=== PATIENT | male | born 1990 | race African-American/Black ===

== ENCOUNTER 2019-10-13 09:48 | Inpatient (IN) | payer MEDICAID, OTHER ==
[~2019-10-13] VITALS: Ht 180.3 cm; Wt 77.1 kg
[2019-10-13] MEDS ORDERED: FAMOTIDINE 20MG/2ML VIAL IV STA (10:04)
[2019-10-13] MEDS ORDERED: ONDANSETRON HCL 4MG/2ML INJ IV STA (10:04)
[2019-10-13] MEDS ORDERED: SODIUM CHLORIDE 0.9% 1,000 ML IV ONE (10:04)
[2019-10-13] MEDS ORDERED: MORPHINE SULFATE 4 MG/ML CPJ (NOT FOR IM USE) IV STA (10:04)
[2019-10-13 10:45] LABS: BASOPHILS % 0.5 % (0.0-2.0); EOSINOPHILS % 0.1 % (0.0-5.0); HEMATOCRIT. 42.8 % (42.0-52.0); HEMOGLOBIN. 13.9 g/dL (14.0-18.0); LYMPHOCYTES % 23.6 % (20.0-50.0); MEAN CORPUSCULAR HEMOGLOBIN 24.1 pg (28.0-32.0); MEAN CORPUSCULAR VOLUME 74.2 fL (80.0-94.0); MEAN PLATELET VOLUME 9.9 fl (7.4-10.4); MONOCYTES % 5.9 % (2.0-8.0); NEUTROPHILS % 69.9 % (40.0-76.0); PLATELET 205 x1000/uL (130-400); RED BLOOD CELL COUNT 5.77 mill/uL (4.7-6.1); RED CELL DISTRIBUTION WIDTH 15.2 % (11.6-14.6)
[2019-10-13 10:50] LABS: CHLORIDE 105 mEq/L (98-107)
[2019-10-13 10:53] LABS: INR 1.1; PROTHROMBIN TIME 11.4 sec (9.6-11.0)
[2019-10-13 10:55] LABS: ETHANOL BLOOD < 10 mg/dL
[2019-10-13] MEDS ORDERED: IOHEXOL-300 100 ML BOTTLE ONE ×2 (11:49→11:50)
[2019-10-13] MEDS ORDERED: PIPERACILLIN/TAZ 3.375G PREMIX 50 ML IV ONE ×2 (12:00)
[2019-10-13] MEDS ORDERED: MORPHINE SULFATE 4 MG/ML CPJ (NOT FOR IM USE) IV ONE (12:00)
[2019-10-13] MEDS ORDERED: ONDANSETRON HCL 4MG/2ML INJ IV ONE (12:15)
[2019-10-13 17:00] VITALS: BP 134/71
[2019-10-13] MEDS: ONDANSETRON HCL 4MG/2ML INJ IV PRN (17:46)
[2019-10-13] MEDS: MORPHINE SULFATE 4 MG/ML CPJ (NOT FOR IM USE) IV PRN (17:47)
[2019-10-13 19:12] LABS: CLARITY URINE CLEAR (CLEAR); COLOR URINE YELLOW (YELLOW); KETONES URINE TRACE (NEGATIVE); LEUKOCYTE ESTERASE URINE NEGATIVE (NEGATIVE); NITRITE URINE NEGATIVE (NEGATIVE); OCCULT BLOOD URINE NEGATIVE (NEGATIVE); PH URINE 5.5 (4.5-8.0); PROTEIN URINE NEGATIVE (NEGATIVE); SPECIFIC GRAVITY URINE 1.045 (1.005-1.030); UROBILINOGEN URINE 0.2 E.U./dL (0.2-1.0)
[2019-10-13 19:26] LABS: *BARBITURATES SCREEN URINE NEGATIVE (NEGATIVE); *BENZODIAZEPINES SCREEN URINE NEGATIVE (NEGATIVE); *COCAINE SCREEN URINE NEGATIVE (NEGATIVE)
[2019-10-13 19:27] LABS: *AMPHETAMINES SCREEN URINE NEGATIVE (NEGATIVE); CANNABINOID URINE SCREEN NEGATIVE (NEGATIVE); METHADONE URINE SCREEN NEGATIVE (NEGATIVE); OPIATES URINE SCREEN PRESUMTIVE POSITIVE (NEGATIVE); PHENCYCLIDINE URINE SCREEN NEGATIVE (NEGATIVE)
[2019-10-13 20:00] VITALS: BP 131/73
[2019-10-13] MEDS: FAMOTIDINE 20MG/2ML VIAL IV SCH (21:57)
[2019-10-13] MEDS: DEXT 5%/0.45% NACL KCL 10MEQ/L 1,000 ML IV SCH (21:59)
[2019-10-14] VITALS: BP 140/86
[2019-10-14] MEDS: MORPHINE SULFATE 4 MG/ML CPJ (NOT FOR IM USE) IV PRN ×4 (00:20→20:56)
[2019-10-14] MEDS: ONDANSETRON HCL 4MG/2ML INJ IV PRN ×4 (00:21→20:56)
[2019-10-14] MEDS: DEXT 5%/0.45% NACL KCL 10MEQ/L 1,000 ML IV SCH ×2 (02:51→18:32)
[2019-10-14 04:00] VITALS: BP 121/72
[2019-10-14 06:31] LABS: BASOPHILS % 0.3 % (0.0-2.0); HEMATOCRIT. 41.2 % (42.0-52.0); HEMOGLOBIN. 13.2 g/dL (14.0-18.0); LYMPHOCYTES % 7.9 % (20.0-50.0); MEAN CORPUSCULAR HEMOGLOBIN 23.9 pg (28.0-32.0); MEAN CORPUSCULAR VOLUME 74.7 fL (80.0-94.0); MEAN PLATELET VOLUME 10.2 fl (7.4-10.4); NEUTROPHILS % 83.8 % (40.0-76.0); PLATELET 207 x1000/uL (130-400); RED BLOOD CELL COUNT 5.52 mill/uL (4.7-6.1); RED CELL DISTRIBUTION WIDTH 15.5 % (11.6-14.6)
[2019-10-14 06:31] LABS: CHLORIDE 103 mEq/L (98-107)
[2019-10-14 06:40] LABS: PHOSPHORUS 3.6 mg/dL (2.5-4.9)
[2019-10-14 08:00] VITALS: BP 138/83
[2019-10-14] MEDS: FAMOTIDINE 20MG/2ML VIAL IV SCH ×2 (09:27→20:57)
[2019-10-14] MEDS ORDERED: NA PHOS,M-B/NA PHOS,DI-BA ENEMA 118ML PR NR (11:30)
[2019-10-14 12:00] VITALS: BP 101/65
[2019-10-14] MEDS ORDERED: POTASSIUM CHLORIDE INJ 40 MEQ in DEXT 5% WATER 500 ML IV NR (12:00)
[2019-10-14] MEDS ORDERED: MAGNESIUM 2 G PREMIX 50 ML IV NR (12:00)
[2019-10-14 16:00] VITALS: BP 120/77
[2019-10-14 20:00] VITALS: BP 116/74
[2019-10-15] VITALS: BP 132/78
[2019-10-15] MEDS: DEXT 5%/0.45% NACL KCL 10MEQ/L 1,000 ML IV SCH ×3 (02:55→18:48)
[2019-10-15] MEDS: ONDANSETRON HCL 4MG/2ML INJ IV PRN ×2 (03:06→16:40)
[2019-10-15] MEDS: MORPHINE SULFATE 4 MG/ML CPJ (NOT FOR IM USE) IV PRN ×4 (03:06→23:27)
[2019-10-15 04:00] VITALS: BP 124/60
[2019-10-15 06:52] LABS: HEMATOCRIT. 42.3 % (42.0-52.0); HEMOGLOBIN. 13.7 g/dL (14.0-18.0); MEAN CORPUSCULAR HEMOGLOBIN 24.1 pg (28.0-32.0); MEAN CORPUSCULAR VOLUME 74.3 fL (80.0-94.0); MEAN PLATELET VOLUME 9.8 fl (7.4-10.4); PLATELET 190 x1000/uL (130-400); RED CELL DISTRIBUTION WIDTH 14.9 % (11.6-14.6)
[2019-10-15 07:50] LABS: CHLORIDE 103 mEq/L (98-107)
[2019-10-15 07:59] LABS: PHOSPHORUS 2.2 mg/dL (2.5-4.9)
[2019-10-15 08:00] VITALS: BP 147/92
[2019-10-15] MEDS: FAMOTIDINE 20MG/2ML VIAL IV SCH ×2 (09:38→21:01)
[2019-10-15 12:18] LABS: PLATELET ESTIMATE NORMAL
[2019-10-15] MEDS ORDERED: POTASSIUM PHOS,M-BASIC-D-BASIC 15 MMOL in DEXT 5% WATER 245 ML IV NR (13:00)
[2019-10-15 16:00] VITALS: BP 126/78
[2019-10-15 20:00] VITALS: BP 123/82
[2019-10-16] VITALS: BP 119/77
[2019-10-16] MEDS: DEXT 5%/0.45% NACL KCL 10MEQ/L 1,000 ML IV SCH ×3 (03:21→17:48)
[2019-10-16 04:00] VITALS: BP 119/76
[2019-10-16] MEDS: MORPHINE SULFATE 4 MG/ML CPJ (NOT FOR IM USE) IV PRN ×3 (05:35→21:56)
[2019-10-16 08:00] VITALS: BP 149/96
[2019-10-16] MEDS: FAMOTIDINE 20MG/2ML VIAL IV SCH ×2 (09:04→21:04)
[2019-10-16 12:00] VITALS: BP 131/80
[2019-10-16 16:00] VITALS: BP 132/81
[2019-10-16] MEDS: ONDANSETRON HCL 4MG/2ML INJ IV PRN (17:48)
[2019-10-16 20:00] VITALS: BP 119/85
[2019-10-17] VITALS: BP 131/79
[2019-10-17] MEDS: DEXT 5%/0.45% NACL KCL 10MEQ/L 1,000 ML IV SCH ×3 (02:31→21:15)
[2019-10-17 03:58] VITALS: BP 109/78
[2019-10-17] MEDS: MORPHINE SULFATE 4 MG/ML CPJ (NOT FOR IM USE) IV PRN ×4 (04:01→23:13)
[2019-10-17] MEDS: ONDANSETRON HCL 4MG/2ML INJ IV PRN ×4 (04:02→23:14)
[2019-10-17 07:34] LABS: CHLORIDE 101 mEq/L (98-107)
[2019-10-17 07:50] LABS: HEMATOCRIT. 41.7 % (42.0-52.0); HEMOGLOBIN. 13.7 g/dL (14.0-18.0); MEAN CORPUSCULAR HEMOGLOBIN 24.1 pg (28.0-32.0); MEAN CORPUSCULAR VOLUME 73.6 fL (80.0-94.0); PLATELET 231 x1000/uL (130-400); RED BLOOD CELL COUNT 5.67 mill/uL (4.7-6.1); RED CELL DISTRIBUTION WIDTH 14.5 % (11.6-14.6)
[2019-10-17 08:00] VITALS: BP 130/82
[2019-10-17] MEDS: FAMOTIDINE 20MG/2ML VIAL IV SCH ×2 (09:29→21:15)
[2019-10-17 12:00] VITALS: BP 141/95
[2019-10-17 13:17] LABS: PLATELET ESTIMATE NORMAL
[2019-10-17 16:00] VITALS: BP 132/95
[2019-10-17 20:00] VITALS: BP 132/81
[2019-10-18] VITALS: BP 129/81
[2019-10-18 04:00] VITALS: BP 129/81
[2019-10-18] MEDS: ONDANSETRON HCL 4MG/2ML INJ IV PRN ×2 (06:08→11:23)
[2019-10-18] MEDS: MORPHINE SULFATE 4 MG/ML CPJ (NOT FOR IM USE) IV PRN ×4 (06:09→21:15)
[2019-10-18 07:06] LABS: CHLORIDE 99 mEq/L (98-107)
[2019-10-18 07:16] LABS: LDL CHOLESTEROL 81 mg/dL (5-100)
[2019-10-18 07:18] LABS: HDL CHOLESTEROL 13 mg/dL (40-59)
[2019-10-18 08:00] VITALS: BP 141/88
[2019-10-18] MEDS ORDERED: NORMAL SALINE 0.9% 10 ML SYR ONE (08:37)
[2019-10-18] MEDS ORDERED: BACITRACIN 50,000 UNITS/VIAL ONE (08:38)
[2019-10-18] MEDS ORDERED: BUPIVACAINE HCL 0.5% (5MG/ML) 50ML ONE (08:38)
[2019-10-18] MEDS ORDERED: PROPOFOL 200MG/20ML VIAL IV ONE (08:58)
[2019-10-18] MEDS ORDERED: LIDOCAINE HCL/PF 1% 10 MG/ML 5ML VIAL ONE (08:58)
[2019-10-18] MEDS ORDERED: MIDAZOLAM HCL 2 MG/2 ML VIAL ONE (08:58)
[2019-10-18] MEDS ORDERED: FENTANYL CITRATE/PF 50MCG/ML 5ML VIAL ONE (08:58)
[2019-10-18] MEDS ORDERED: ROCURONIUM BROMIDE 10MG/ML VIAL 5ML IV ONE (08:58)
[2019-10-18] MEDS ORDERED: METRONIDAZOLE 500 MG PREMIX 100 ML IV ONE (10:12)
[2019-10-18] MEDS ORDERED: DEXAMETHASONE 4MG/ML 1ML VIAL ONE (10:18)
[2019-10-18] MEDS ORDERED: ONDANSETRON HCL 4MG/2ML INJ ONE (10:18)
[2019-10-18] MEDS ORDERED: BUPIVACAINE HCL 0.5% 290 ML in ON-Q PM015 DRUG DELIV DEVICE 1 EA IR STA (10:21)
[2019-10-18] MEDS: HYDROMORPHONE HCL/PF 2MG/ML CPJ IV PRN ×2 (11:52→13:24)
[2019-10-18] MEDS: DEXT 5%/0.45% NACL KCL 10MEQ/L 1,000 ML IV SCH (17:44)
[2019-10-18 20:00] VITALS: BP 122/77
[2019-10-18] MEDS: FAMOTIDINE 20MG/2ML VIAL IV SCH (21:15)
[2019-10-19] VITALS: BP 128/71
[2019-10-19] MEDS: MORPHINE SULFATE 4 MG/ML CPJ (NOT FOR IM USE) IV PRN ×5 (01:22→21:20)
[2019-10-19 04:00] VITALS: BP 131/85
[2019-10-19] MEDS: DEXT 5%/0.45% NACL KCL 10MEQ/L 1,000 ML IV SCH ×3 (05:19→18:43)
[2019-10-19 05:27] LABS: CHLORIDE 101 mEq/L (98-107)
[2019-10-19 08:00] VITALS: BP 132/80
[2019-10-19] MEDS: FAMOTIDINE 20MG/2ML VIAL IV SCH ×2 (09:10→21:21)
[2019-10-19 12:00] VITALS: BP 140/89
[2019-10-19] MEDS: LEVOFLOXACIN 500MG PREMIX 100 ML IV SCH (13:33)
[2019-10-19 16:00] VITALS: BP 132/85
[2019-10-19 20:00] VITALS: BP 144/73
[2019-10-20] VITALS: BP 127/77
[2019-10-20] MEDS: MORPHINE SULFATE 4 MG/ML CPJ (NOT FOR IM USE) IV PRN ×3 (02:07→23:07)
[2019-10-20] MEDS: ONDANSETRON HCL 4MG/2ML INJ IV PRN (02:48)
[2019-10-20 04:00] VITALS: BP 143/90
[2019-10-20 07:14] LABS: MEAN CORPUSCULAR HEMOGLOBIN 24.1 pg (28.0-32.0); MEAN CORPUSCULAR VOLUME 72.7 fL (80.0-94.0); MEAN PLATELET VOLUME 10.3 fl (7.4-10.4); PLATELET 265 x1000/uL (130-400); RED BLOOD CELL COUNT 4.71 mill/uL (4.7-6.1); RED CELL DISTRIBUTION WIDTH 14.4 % (11.6-14.6)
[2019-10-20 07:28] LABS: CHLORIDE 99 mEq/L (98-107)
[2019-10-20 08:00] VITALS: BP 134/82
[2019-10-20] MEDS: DEXT 5%/0.45% NACL KCL 10MEQ/L 1,000 ML IV SCH ×4 (08:19→23:04)
[2019-10-20 08:52] LABS: HEMOGLOBIN. 11.3 g/dL (14.0-18.0)
[2019-10-20 08:53] LABS: HEMATOCRIT. 34.2 % (42.0-52.0)
[2019-10-20] MEDS: FAMOTIDINE 20MG/2ML VIAL IV SCH ×2 (09:17→20:10)
[2019-10-20 12:00] VITALS: BP 136/79
[2019-10-20] MEDS: LEVOFLOXACIN 500MG PREMIX 100 ML IV SCH (13:35)
[2019-10-20 19:49] LABS: NUCLEATED RED BLOOD CELLS 1 /100 WBC
[2019-10-20 20:00] VITALS: BP 106/66
[2019-10-20 22:28] LABS: PLATELET ESTIMATE NORMAL
[2019-10-21] VITALS: BP 121/78
[2019-10-21 04:00] VITALS: BP 123/76
[2019-10-21] MEDS: MORPHINE SULFATE 4 MG/ML CPJ (NOT FOR IM USE) IV PRN ×4 (06:04→18:15)
[2019-10-21 07:14] LABS: HEMATOCRIT. 33.4 % (42.0-52.0); MEAN CORPUSCULAR VOLUME 72.8 fL (80.0-94.0); MEAN PLATELET VOLUME 9.2 fl (7.4-10.4); PLATELET 326 x1000/uL (130-400); RED BLOOD CELL COUNT 4.59 mill/uL (4.7-6.1); RED CELL DISTRIBUTION WIDTH 14.6 % (11.6-14.6)
[2019-10-21 08:00] VITALS: BP 120/80
[2019-10-21] MEDS: FAMOTIDINE 20MG/2ML VIAL IV SCH ×2 (09:11→20:47)
[2019-10-21 12:00] VITALS: BP 130/82
[2019-10-21] MEDS: DEXT 5%/0.45% NACL KCL 10MEQ/L 1,000 ML IV SCH ×2 (12:44→18:18)
[2019-10-21] MEDS: LEVOFLOXACIN 500MG PREMIX 100 ML IV SCH (12:51)
[2019-10-21 13:53] LABS: PLATELET ESTIMATE NORMAL
[2019-10-21 16:00] VITALS: BP 112/70
[2019-10-21 20:00] VITALS: BP 113/62
[2019-10-22] VITALS: BP 117/76
[2019-10-22] MEDS: MORPHINE SULFATE 4 MG/ML CPJ (NOT FOR IM USE) IV PRN ×5 (00:45→18:57)
[2019-10-22] MEDS: DEXT 5%/0.45% NACL KCL 10MEQ/L 1,000 ML IV SCH ×3 (03:04→18:14)
[2019-10-22 04:00] VITALS: BP 124/70
[2019-10-22 07:05] LABS: HEMATOCRIT. 31.4 % (42.0-52.0); HEMOGLOBIN. 10.6 g/dL (14.0-18.0); MEAN CORPUSCULAR HEMOGLOBIN 24.7 pg (28.0-32.0); MEAN PLATELET VOLUME 9.5 fl (7.4-10.4); PLATELET 347 x1000/uL (130-400); RED CELL DISTRIBUTION WIDTH 14.7 % (11.6-14.6)
[2019-10-22 08:00] VITALS: BP 121/69
[2019-10-22] MEDS: FAMOTIDINE 20MG/2ML VIAL IV SCH ×2 (08:34→20:36)
[2019-10-22 10:34] LABS: ATYPICAL LYMPHOCYTES 2; PLATELET ESTIMATE NORMAL
[2019-10-22 12:00] VITALS: BP 108/69
[2019-10-22] MEDS: LEVOFLOXACIN 500MG PREMIX 100 ML IV SCH (12:28)
[2019-10-22 16:00] VITALS: BP 111/70
[2019-10-22 20:00] VITALS: BP 118/74
[2019-10-23] VITALS: BP 111/76
[2019-10-23] MEDS: MORPHINE SULFATE 4 MG/ML CPJ (NOT FOR IM USE) IV PRN ×4 (00:44→16:07)
[2019-10-23] MEDS: DEXT 5%/0.45% NACL KCL 10MEQ/L 1,000 ML IV SCH ×3 (03:13→18:30)
[2019-10-23 04:00] VITALS: BP 120/78
[2019-10-23 07:34] LABS: HEMATOCRIT. 32.6 % (42.0-52.0); HEMOGLOBIN. 10.7 g/dL (14.0-18.0); MEAN CORPUSCULAR HEMOGLOBIN 24.1 pg (28.0-32.0); MEAN CORPUSCULAR VOLUME 73.2 fL (80.0-94.0); MEAN PLATELET VOLUME 9.6 fl (7.4-10.4); PLATELET 356 x1000/uL (130-400); RED BLOOD CELL COUNT 4.45 mill/uL (4.7-6.1); RED CELL DISTRIBUTION WIDTH 14.5 % (11.6-14.6)
[2019-10-23 08:00] VITALS: BP 113/71
[2019-10-23] MEDS: FAMOTIDINE 20MG/2ML VIAL IV SCH ×2 (08:24→20:39)
[2019-10-23 10:22] LABS: PLATELET ESTIMATE NORMAL
[2019-10-23 12:00] VITALS: BP_SYST 110; BP_SYST 116; BP_SYST 16; BP_DIAS 75; BP_DIAS 80
[2019-10-23] MEDS: LEVOFLOXACIN 500MG PREMIX 100 ML IV SCH (13:29)
[2019-10-23 16:00] VITALS: BP_SYST 120; BP_SYST 126; BP_DIAS 57; BP_DIAS 78
[2019-10-23 20:00] VITALS: BP 112/65
[2019-10-23] MEDS: MORPHINE SULFATE 2 MG/ML CPJ (NOT FOR IM USE) IV PRN (20:38)
[2019-10-24] VITALS: BP 116/71
[2019-10-24] MEDS: DEXT 5%/0.45% NACL KCL 10MEQ/L 1,000 ML IV SCH ×2 (03:13→10:44)
[2019-10-24] MEDS: MORPHINE SULFATE 2 MG/ML CPJ (NOT FOR IM USE) IV PRN ×3 (03:13→13:13)
[2019-10-24 04:00] VITALS: BP 107/68
[2019-10-24 08:00] VITALS: BP 110/69
[2019-10-24] MEDS: FAMOTIDINE 20MG/2ML VIAL IV SCH (08:35)
[2019-10-24 12:00] VITALS: BP 118/75
[2019-10-24] MEDS: LEVOFLOXACIN 500MG PREMIX 100 ML IV SCH (13:11)
[2019-10-24 16:00] VITALS: BP 111/52
[2019-10-24 17:48] VITALS: BP 111/52
== END 2019-10-24 18:56 | disposition home or self-care (01) | DRG 230 ==
LOC: ER 09:48 → MICUSO 13:14 → 6EST 16:47
PROVIDERS: ADMIT Internal Medicine; ATTEND Internal Medicine
PROC: 0D9670Z Drainage of Stomach with Drainage Device, Via Natural or Artificial Opening (ICD-10-PCS; principal; 2019-10-18)
PROC: 0DB80ZZ Excision of Small Intestine, Open Approach (ICD-10-PCS; 2019-10-18)
PROC: 0DN80ZZ Release Small Intestine, Open Approach (ICD-10-PCS; 2019-10-18)
DX: K56.609 Unspecified intestinal obstruction, unspecified as to partial versus complete obstruction (principal); D50.9 Iron deficiency anemia, unspecified; E87.6 Hypokalemia; F17.210 Nicotine dependence, cigarettes, uncomplicated; F19.11 Other psychoactive substance abuse, in remission; K56.50 Intestinal adhesions [bands], unspecified as to partial versus complete obstruction; K40.90 Unilateral inguinal hernia, without obstruction or gangrene, not specified as recurrent; K56.41 Fecal impaction; Z79.899 Other long term (current) drug therapy; Z11.59 Encounter for screening for other viral diseases; K44.9 Diaphragmatic hernia without obstruction or gangrene
CPT/HCPCS: 36415; 71045; 74018; 74177; 76700; 80048; 80053; 80061; 80305; 80320; 81003; 83605; 83735; 84100; 84145; 85025; 88307; 93005; 97116; 97162; 99291; J1100; J1170; J1956; J2250; J2270; J2405; J2543; J2704; J3010; J3475; J3480; J3490; J7030; J7060; Q9967; G0480; U0003-CS